=== PATIENT | male | born 1965 | race Caucasian/White ===

== ENCOUNTER 2023-12-15 17:20 | Emergency (ER) | payer BC ==
[~2023-12-15] VITALS: Ht 182.9 cm; Wt 72.6 kg
[2023-12-15 17:25] VITALS: BP_SYST 128; PULSE 65; RESP 18; TEMP 98.2; O2SAT 99
[2023-12-15] MEDS: NACL 0.9% 1,000 ML IV ONE (17:30)
[2023-12-15 17:52] LABS: BASOPHILS # (AUTO) 0.1 K/uL (0.0-0.2); BASOPHILS % (AUTO) 1.2 % (0.0-2.0); EOSINOPHILS # (AUTO) 0.1 K/uL (0.0-0.4); EOSINOPHILS % (AUTO) 1.6 % (0.0-4.0); HEMATOCRIT 43.6 % (36-54); HEMOGLOBIN 15.2 g/dL (14.0-18.0); LYMPHOCYTES # (AUTO) 3.1 K/uL (1.0-5.5); LYMPHOCYTES % (AUTO) 51.8 % (20.5-51.5); MEAN CORPUSCULAR HEMOGLOBIN 32 pg (27-31); MEAN CORPUSCULAR HGB CONC 35 % (32-36); MEAN CORPUSCULAR VOLUME 92 fL (79.0-98.0); MONOCYTES # (AUTO) 0.5 K/uL (0.0-1.0); MONOCYTES % (AUTO) 8.2 % (1.7-9.3); NEUTROPHILS # (AUTO) 2.2 K/uL (1.8-7.7); NEUTROPHILS % (AUTO) 37.2 % (40.0-70.0); PLATELET COUNT (AUTO) 295 K/uL (130-430); RED BLOOD CELL COUNT(AUTO) 4.75 MIL/uL (4.2-6.2); RED CELL DISTRIBUTION WIDTH 12.6 % (9.0-15.0); WHITE BLOOD COUNT (AUTO) 5.9 K/uL (4.8-10.8)
[2023-12-15 18:17] LABS: PROTHROMBIN TIME 10.4 SECS (9.5-12.5)
[2023-12-15 18:19] LABS: ANION GAP 6 (5-15); CALCIUM 9.5 mg/dL (8.4-11.0); CARBON DIOXIDE 31 mmol/L (23-29); CHLORIDE 102 mmol/L (98-107); CREATININE 1.21 mg/dL (0.55-1.30); GFR AFRICAN AMERICAN 79 mL/min (>90); GLUCOSE 100 mg/dL (74-106); POTASSIUM 4.6 mmol/L (3.5-5.1); SODIUM SERUM 139 mmol/L (136-145); UREA NITROGEN, BLOOD 15 mg/dL (8-21)
[2023-12-15 18:40] LABS: GFR NON AFRICAN-AMERICAN 65 mL/min (>90)
[2023-12-15 18:41] LABS: ALCOHOL, BLOOD < 3 mg/dL (<10)
[2023-12-15 21:10] LABS: BILIRUBIN,URINE NEGATIVE (NEGATIVE); BLOOD, URINE NEGATIVE (NEGATIVE); CLARITY/URINE CLEAR (CLEAR); COLOR,URINE YELLOW (YELLOW); GLUCOSE,URINE NEGATIVE (NEGATIVE); KETONES,URINE NEGATIVE (NEGATIVE); LEUKOCYTE ESTERASE ,URINE NEGATIVE (NEGATIVE); NITRITE, URINE NEGATIVE (NEGATIVE); PROTEIN URINE NEGATIVE (NEGATIVE); UROBILINOGEN,URINE 0.2 (0.2-1.0)
[2023-12-15 21:20] VITALS: BP_SYST 125; PULSE 69; RESP 15; TEMP 97.1; O2SAT 99
[2023-12-15 21:54] LABS: BARBITURATE, URINE NEGATIVE (NEG <=200); BENZODIAZEPINE, URINE NEGATIVE (NEG <=150); CANNABINOID, URINE NEGATIVE (NEG <=50); COCAINE, URINE NEGATIVE (NEG <=150); METHAMPHETAMINES SCREEN,URINE NEGATIVE (NEG <=500); OPIATE, URINE NEGATIVE (NEG <=100); PHENCYCLIDINE SCREEN,URINE NEGATIVE (NEG <=25); UR TRICYCLIC ANTIDEPRESSANTS NEGATIVE (NEG <=300); URINE AMPHETAMINE NEGATIVE (NEG <=500); URINE METHADONE NEGATIVE (NEG <=200); URINE OXYCODONE SCREEN NEGATIVE (NEG <=100)
== END 2023-12-15 21:20 | disposition home or self-care (01) ==
LOC: SED 17:20
DX: R55 Syncope and collapse (principal); M25.511 Pain in right shoulder; E78.00 Pure hypercholesterolemia, unspecified
CPT/HCPCS: 99285; 96360; 71045; 80307; 80048; 81001; 85025; 85610; 85730; 84484; 36415; 93005; 81003; G0482; J7030